=== PATIENT | male | born 1945 | race Caucasian/White ===

== ENCOUNTER 2021-05-01 13:22 | Inpatient (IN) ==
[2021-05-02] MEDS ORDERED: Ipratropium/Albuterol Neb 3 ML IH PRN (00:54)
[2021-05-02] MEDS ORDERED: Naloxone 0.4 MG/ML INJ IVP PRN (00:57)
[2021-05-02] MEDS ORDERED: NON-FORMULARY MEDICATION 1 EACH EACH (Alendronate Sodium [Fosamax] 70 MG Tablet) PO SCH (01:00)
[2021-05-02] MEDS: Carbidopa/Levodopa ER 50/200 TABLET PO SCH ×2 (01:37→21:10)
[2021-05-02 02:54] LABS: Hematocrit 45.5 % (37.5-50.1); Hemoglobin 14.7 g/dL (12.9-16.9); Mean Corpuscular HGB Conc 32.3 g/dL (31.6-35.5); Mean Corpuscular Hemoglobin 29.1 pg (28.0-33.3); Mean Corpuscular Volume 90.1 fL (83.0-100.0); Mean Platelet Volume 12.7 fL (9.4-12.4); Platelet Count 117 K/mcL (140-400); Red Blood Count 5.05 M/mcL (4.19-5.50); Red Cell Distribution Width 14.6 % (11.5-14.5); White Blood Count 4.8 K/mcL (4.3-11.1)
[2021-05-02 03:02] LABS: BUN/Creatinine Ratio 17 (6-26); Blood Urea Nitrogen 15 mg/dL (8-23); Calcium 8.6 mg/dL (8.6-10.3); Carbon Dioxide 25 mEq/L (23-29); Chloride 106 mEq/L (98-107); Chol/HDL Ratio 3.4 (0-4.9); Cholesterol 85 mg/dL (< 200); Glucose 111 mg/dL (70-105); HDL Cholesterol 25 mg/dL (40-59); LDL Cholesterol,Calculated 43 mg/dL (< 100); Magnesium 2.1 mg/dL (1.6-2.6); Osmolality,Calculated 290 (280-300); Potassium 3.4 mEq/L (3.5-5.1); Sodium 139 mEq/L (136-145); Triglycerides 84 mg/dL (< 150); Troponin I < 0.03 ng/mL (< 0.04); eGFR For African Americans > 60 (> 60); eGFR For Non-African Americans > 60 (> 60)
[2021-05-02 03:06] LABS: INR 1.2; Prothrombin Time 13.5 Seconds (9.4-12.1)
[2021-05-02 03:09] LABS: Activated Partial Thrombo Time 30.2 Seconds (26.0-36.0)
[2021-05-02 03:14] LABS: Thyroid Stimulating Hormone 2.417 mcIU/mL (0.340-5.600)
[2021-05-02] MEDS: Aspirin Enteric Coated 81 MG Tablet PO SCH (08:07)
[2021-05-02] MEDS: Cholecalciferol (D-3) 1,000 UNIT (25MCG) TABLET PO SCH (08:07)
[2021-05-02] MEDS: Acetaminophen 325 MG TABLET PO PRN ×2 (08:07→21:10)
[2021-05-02] MEDS: allopurinoL 300 MG TABLET PO SCH (08:07)
[2021-05-02] MEDS: Carbidopa/Levodopa 25/100 TABLET PO SCH ×4 (08:14→18:39)
[2021-05-02] MEDS ORDERED: levoFLOXacin 750 MG/150 ML 750 MG/150 ML BAG IVPB SCH (09:00)
[2021-05-02] MEDS ORDERED: Albuterol 2.5 MG/3 ML NEBULIZER IH PRN (13:39)
[2021-05-02] MEDS: Ipratropium/Albuterol Neb 3 ML IH SCH ×3 (15:54→23:25)
[2021-05-02] MEDS: VITAMIN K2 100 MCG PO SCH (20:46)
[2021-05-02] MEDS: clonazePAM 0.5 MG TABLET PO SCH (21:09)
[2021-05-02] MEDS: Saline Nasal Spray 44 ML BOTTLE NS PRN (22:16)
[2021-05-03] MEDS: Ipratropium/Albuterol Neb 3 ML IH SCH ×6 (03:31→23:36)
[2021-05-03 05:27] LABS: Hematocrit 46.4 % (37.5-50.1); Hemoglobin 14.8 g/dL (12.9-16.9); Mean Corpuscular HGB Conc 31.9 g/dL (31.6-35.5); Mean Corpuscular Hemoglobin 28.7 pg (28.0-33.3); Mean Corpuscular Volume 89.9 fL (83.0-100.0); Mean Platelet Volume 12.9 fL (9.4-12.4); Platelet Count 121 K/mcL (140-400); Red Blood Count 5.16 M/mcL (4.19-5.50); Red Cell Distribution Width 14.6 % (11.5-14.5); White Blood Count 5.8 K/mcL (4.3-11.1)
[2021-05-03 05:45] LABS: BUN/Creatinine Ratio 16 (6-26); Blood Urea Nitrogen 16 mg/dL (8-23); Calcium 8.6 mg/dL (8.6-10.3); Carbon Dioxide 26 mEq/L (23-29); Chloride 107 mEq/L (98-107); Glucose 101 mg/dL (70-105); Osmolality,Calculated 293 (280-300); Potassium 3.4 mEq/L (3.5-5.1); Sodium 141 mEq/L (136-145); eGFR For African Americans > 60 (> 60); eGFR For Non-African Americans > 60 (> 60)
[2021-05-03] MEDS: Carbidopa/Levodopa 25/100 TABLET PO SCH ×4 (08:11→19:50)
[2021-05-03] MEDS: predniSONE 20 MG TABLET PO SCH (11:00)
[2021-05-03] MEDS: allopurinoL 300 MG TABLET PO SCH (11:00)
[2021-05-03] MEDS: levoFLOXacin 750 MG/150 ML 750 MG/150 ML BAG IVPB SCH (11:00)
[2021-05-03] MEDS: Aspirin Enteric Coated 81 MG Tablet PO SCH (11:00)
[2021-05-03] MEDS: Cholecalciferol (D-3) 1,000 UNIT (25MCG) TABLET PO SCH (11:00)
[2021-05-03] MEDS: GuaiFENesin/Codeine Oral Soln 5 ML UDC PO SCH ×2 (16:55→23:49)
[2021-05-03] MEDS: Carbidopa/Levodopa ER 50/200 TABLET PO SCH (21:35)
[2021-05-03] MEDS: clonazePAM 0.5 MG TABLET PO SCH (21:35)
[2021-05-03] MEDS: Saline Nasal Spray 44 ML BOTTLE NS PRN (21:36)
[2021-05-03] MEDS: Acetaminophen 325 MG TABLET PO PRN (21:36)
[2021-05-04] MEDS: Ipratropium/Albuterol Neb 3 ML IH SCH ×5 (03:57→20:01)
[2021-05-04] MEDS: VITAMIN K2 100 MCG PO SCH (04:04)
[2021-05-04 05:46] LABS: Basophils % 0.2 %; Eosinophils % 0.5 %; Hematocrit 48.3 % (37.5-50.1); Hemoglobin 14.9 g/dL (12.9-16.9); Immature Granulocytes % 0.4 % (0-4); Lymphocytes # 1.6 K/mcL (0.6-4.6); Lymphocytes % 19.6 %; Mean Corpuscular HGB Conc 30.8 g/dL (31.6-35.5); Mean Corpuscular Hemoglobin 29.8 pg (28.0-33.3); Mean Corpuscular Volume 96.6 fL (83.0-100.0); Mean Platelet Volume 12.8 fL (9.4-12.4); Monocytes # 0.7 K/mcL (0.0-1.3); Monocytes % 9.1 %; Neutrophils # 5.7 K/mcL (1.6-8.9); Platelet Count 112 K/mcL (140-400); Red Cell Distribution Width 14.8 % (11.5-14.5); Segmented Neutrophils % 70.2 %; White Blood Count 8.1 K/mcL (4.3-11.1)
[2021-05-04 06:08] LABS: BUN/Creatinine Ratio 19 (6-26); Blood Urea Nitrogen 18 mg/dL (8-23); Calcium 8.7 mg/dL (8.6-10.3); Carbon Dioxide 24 mEq/L (23-29); Chloride 107 mEq/L (98-107); Glucose 107 mg/dL (70-105); Osmolality,Calculated 292 (280-300); Potassium 3.5 mEq/L (3.5-5.1); Sodium 140 mEq/L (136-145); eGFR For African Americans > 60 (> 60); eGFR For Non-African Americans > 60 (> 60)
[2021-05-04] MEDS: Aspirin Enteric Coated 81 MG Tablet PO SCH (07:55)
[2021-05-04] MEDS: levoFLOXacin 750 MG/150 ML 750 MG/150 ML BAG IVPB SCH (07:55)
[2021-05-04] MEDS: GuaiFENesin/Codeine Oral Soln 5 ML UDC PO SCH ×3 (07:56→23:58)
[2021-05-04] MEDS: allopurinoL 300 MG TABLET PO SCH (07:56)
[2021-05-04] MEDS: predniSONE 20 MG TABLET PO SCH (07:56)
[2021-05-04] MEDS: Cholecalciferol (D-3) 1,000 UNIT (25MCG) TABLET PO SCH (07:56)
[2021-05-04] MEDS: Carbidopa/Levodopa 25/100 TABLET PO SCH ×4 (09:39→19:20)
[2021-05-04] MEDS ORDERED: Lidocaine HCL 4 ML Topical Solution (Laryng-O-Jet Kit Sterile Pak) TP ONE (11:16)
[2021-05-04] MEDS ORDERED: *HR* Propofol 200 MG/20 ML VIAL IVP ONE (11:16)
[2021-05-04] MEDS ORDERED: Lidocaine -MPF 4% 5 ML AMPUL ONE (11:16)
[2021-05-04] MEDS ORDERED: *HR* FentaNYL (PF) 100 MCG/2 ML VIAL ONE (11:16)
[2021-05-04] MEDS ORDERED: Ondansetron 4 MG/2 ML VIAL ONE (11:16)
[2021-05-04] MEDS ORDERED: *HR* FentaNYL (PF) 100 MCG/2 ML VIAL IVP PRN (11:21)
[2021-05-04] MEDS ORDERED: EPHEDrine 50 MG/ML VIAL ONE (12:08)
[2021-05-04] MEDS: clonazePAM 0.5 MG TABLET PO SCH (21:05)
[2021-05-04] MEDS: Carbidopa/Levodopa ER 50/200 TABLET PO SCH (22:24)
[2021-05-05] MEDS: Ipratropium/Albuterol Neb 3 ML IH SCH ×6 (04:31→20:19)
[2021-05-05 07:45] LABS: Basophils % 0.1 %; Hematocrit 45.3 % (37.5-50.1); Hemoglobin 14.4 g/dL (12.9-16.9); Immature Granulocytes % 0.4 % (0-4); Lymphocytes # 0.9 K/mcL (0.6-4.6); Lymphocytes % 8.4 %; Mean Corpuscular HGB Conc 31.8 g/dL (31.6-35.5); Mean Corpuscular Volume 91.3 fL (83.0-100.0); Mean Platelet Volume 12.8 fL (9.4-12.4); Monocytes # 0.6 K/mcL (0.0-1.3); Monocytes % 5.7 %; Neutrophils # 9.2 K/mcL (1.6-8.9); Platelet Count 137 K/mcL (140-400); Red Blood Count 4.96 M/mcL (4.19-5.50); Red Cell Distribution Width 14.8 % (11.5-14.5); Segmented Neutrophils % 85.4 %; White Blood Count 10.8 K/mcL (4.3-11.1)
[2021-05-05 08:05] LABS: BUN/Creatinine Ratio 23 (6-26); Blood Urea Nitrogen 19 mg/dL (8-23); Calcium 8.5 mg/dL (8.6-10.3); Carbon Dioxide 26 mEq/L (23-29); Chloride 111 mEq/L (98-107); Glucose 127 mg/dL (70-105); Osmolality,Calculated 296 (280-300); Potassium 3.6 mEq/L (3.5-5.1); Sodium 141 mEq/L (136-145); eGFR For African Americans > 60 (> 60); eGFR For Non-African Americans > 60 (> 60)
[2021-05-05] MEDS: Aspirin Enteric Coated 81 MG Tablet PO SCH (08:24)
[2021-05-05] MEDS: allopurinoL 300 MG TABLET PO SCH (08:24)
[2021-05-05] MEDS: GuaiFENesin/Codeine Oral Soln 5 ML UDC PO SCH ×2 (08:24→16:34)
[2021-05-05] MEDS: Carbidopa/Levodopa 25/100 TABLET PO SCH ×4 (08:25→19:37)
[2021-05-05] MEDS: levoFLOXacin 750 MG/150 ML 750 MG/150 ML BAG IVPB SCH (08:25)
[2021-05-05] MEDS: Cholecalciferol (D-3) 1,000 UNIT (25MCG) TABLET PO SCH (08:25)
[2021-05-05] MEDS: predniSONE 20 MG TABLET PO SCH (08:25)
[2021-05-05] MEDS: clonazePAM 0.5 MG TABLET PO SCH (20:49)
[2021-05-05] MEDS: Carbidopa/Levodopa ER 50/200 TABLET PO SCH (21:54)
[2021-05-06] MEDS: Ipratropium/Albuterol Neb 3 ML IH SCH ×4 (00:02→11:29)
[2021-05-06] MEDS: GuaiFENesin/Codeine Oral Soln 5 ML UDC PO SCH ×2 (00:04→08:50)
[2021-05-06 03:04] LABS: Basophils % 0.1 %; Eosinophils % 0.1 %; Hematocrit 45.2 % (37.5-50.1); Hemoglobin 14.3 g/dL (12.9-16.9); Immature Granulocytes % 0.8 % (0-4); Lymphocytes # 1.4 K/mcL (0.6-4.6); Lymphocytes % 12.2 %; Mean Corpuscular HGB Conc 31.6 g/dL (31.6-35.5); Mean Corpuscular Hemoglobin 28.8 pg (28.0-33.3); Mean Corpuscular Volume 91.1 fL (83.0-100.0); Mean Platelet Volume 12.9 fL (9.4-12.4); Monocytes # 0.9 K/mcL (0.0-1.3); Monocytes % 7.6 %; Neutrophils # 9.4 K/mcL (1.6-8.9); Platelet Count 140 K/mcL (140-400); Red Blood Count 4.96 M/mcL (4.19-5.50); Red Cell Distribution Width 14.9 % (11.5-14.5); Segmented Neutrophils % 79.2 %; White Blood Count 11.8 K/mcL (4.3-11.1)
[2021-05-06 03:24] LABS: BUN/Creatinine Ratio 23 (6-26); Blood Urea Nitrogen 20 mg/dL (8-23); Calcium 8.6 mg/dL (8.6-10.3); Carbon Dioxide 28 mEq/L (23-29); Chloride 107 mEq/L (98-107); Glucose 122 mg/dL (70-105); Osmolality,Calculated 298 (280-300); Potassium 3.6 mEq/L (3.5-5.1); Sodium 142 mEq/L (136-145); eGFR For African Americans > 60 (> 60); eGFR For Non-African Americans > 60 (> 60)
[2021-05-06] MEDS: Carbidopa/Levodopa 25/100 TABLET PO SCH ×2 (06:38→13:42)
[2021-05-06] MEDS: levoFLOXacin 750 MG/150 ML 750 MG/150 ML BAG IVPB SCH (10:02)
[2021-05-06] MEDS: Aspirin Enteric Coated 81 MG Tablet PO SCH (10:02)
[2021-05-06] MEDS: allopurinoL 300 MG TABLET PO SCH (10:02)
[2021-05-06] MEDS: predniSONE 20 MG TABLET PO SCH (10:02)
[2021-05-06] MEDS: Cholecalciferol (D-3) 1,000 UNIT (25MCG) TABLET PO SCH (10:03)
[2021-05-06 10:24] VITALS: BP 121/79; PULSE 78; TEMP 97.3
[2021-05-06 12:48] VITALS: O2SAT 94
== END 2021-05-06 14:16 | disposition home or self-care (01) | DRG 166 ==
LOC: 3ANU → SUATTDRO 19:51
PROVIDERS: ADMIT Family Medicine; ATTEND Internal Medicine
PROC: ENDOBRF (2021-05-04 10:20)